=== PATIENT | female | born 1965 | race Caucasian/White ===

== ENCOUNTER 2021-10-04 13:58 | Outpatient (CLI) | payer BC | END 2021-10-04 13:59 | disposition home or self-care (01) | LOC: SCSMRI 13:58 | PROVIDERS: ATTEND Family Medicine | DX: M54.2 Cervicalgia (principal); M47.812 Spondylosis without myelopathy or radiculopathy, cervical region; M48.02 Spinal stenosis, cervical region; M25.78 Osteophyte, vertebrae | CPT/HCPCS: 72141 ==